=== PATIENT | female | born 1970 | race Caucasian/White ===

== ENCOUNTER 2018-06-05 18:27 | Emergency (ER) | payer OTHER ==
[2018-06-05] MEDS: ACETAMINOPHEN 500 MG TAB PO (20:53)
== END 2018-06-05 22:18 | disposition home or self-care (01) ==
LOC: FTE 18:27
DX: S20.219A Contusion of unspecified front wall of thorax, initial encounter (principal); E11.9 Type 2 diabetes mellitus without complications; J45.909 Unspecified asthma, uncomplicated; R07.89 Other chest pain; V49.49XA Driver injured in collision with other motor vehicles in traffic accident, initial encounter; Z79.4 Long term (current) use of insulin
CPT/HCPCS: 71046; 93005; 99284-25

== ENCOUNTER 2018-08-10 20:30 | Emergency (ER) | payer SELFPAY, OTHER | END 2018-08-10 22:05 | disposition left against medical advice (07) | LOC: FTE 22:05 | DX: Z53.21 Procedure and treatment not carried out due to patient leaving prior to being seen by health care provider (principal) ==

== ENCOUNTER 2018-08-11 18:48 | Emergency (ER) | payer OTHER | END 2018-08-11 21:19 | disposition home or self-care (01) | LOC: FTE 18:48 | DX: J32.9 Chronic sinusitis, unspecified (principal); I10 Essential (primary) hypertension; E11.9 Type 2 diabetes mellitus without complications; J45.909 Unspecified asthma, uncomplicated; Z79.4 Long term (current) use of insulin; Z79.82 Long term (current) use of aspirin | CPT/HCPCS: 99283 ==